=== PATIENT | male | born 1945 | race Caucasian/White ===

== ENCOUNTER 2016-10-07 13:43 | Emergency (ER) | payer MEDICARE, MEDICAID ==
[~2016-10-07 13:43] MED LIST: ASPIRIN81 MG PO; GARAMYCIN5 ML OP; GINKGO BILOBA30 MG PO; GLUCOSAMINE CHO PO; LEVAQUIN750 MG; LEVAQUIN750 MG PO; MOTRIN800 MG PO; MULTIVITAMIN1 CAP PO; NEURONTIN300 MG; NO HOME MEDS; PERCOCET 5/3251 TAB; PERCOCET 5/3251 TAB PO; PERCODAN TABLET1 TAB PO; PROTONIX40 MG PO; SAW PALMETTO 1160 MG PO; VALTREX1000 MG PO; ZITHROMAX250MG Z-PAK PO; [UNRECOGNIZED DRUG - OTHER]; [UNRECOGNIZED DRUG - OTHER] PO
[2016-10-07] MEDS ORDERED: TART CHERRY CA1 EACH PO (14:29)
[2016-10-07] MEDS ORDERED: LEVAQUIN750 M1 PO (15:11)
[2016-10-07] MEDS ORDERED: ROBAXIN-750750 M1 PO (15:11)
== END 2016-10-07 15:20 ==
LOC: EDMED 13:43
DX: L53.8 Other specified erythematous conditions (principal); J18.9 Pneumonia, unspecified organism; K21.9 Gastro-esophageal reflux disease without esophagitis; Z89.612 Acquired absence of left leg above knee; Z87.891 Personal history of nicotine dependence